=== PATIENT | male | born 1970 | race American Indian/Alaskan Native ===

== ENCOUNTER 2019-04-08 12:26 | Emergency (ER) | payer MEDICARE ==
[2019-04-08 12:50] VITALS: BP 147/102
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
[2019-04-08] MEDS ORDERED: TORADOL IM ONE (14:11)
[2019-04-08] MEDS ORDERED: DELTASONE PO ONE (14:11)
== END 2019-04-08 15:39 | disposition home or self-care (01) ==
LOC: ED 12:26
DX: E11.40 Type 2 diabetes mellitus with diabetic neuropathy, unspecified (principal); I10 Essential (primary) hypertension; F17.200 Nicotine dependence, unspecified, uncomplicated; Z79.4 Long term (current) use of insulin; Z98.890 Other specified postprocedural states; Z79.899 Other long term (current) drug therapy; Z88.8 Allergy status to other drugs, medicaments and biological substances
CPT/HCPCS: 96372; 99282; J1885; J7512

== ENCOUNTER 2019-07-06 09:48 | Emergency (ER) | payer MEDICARE ==
[2019-07-06] MEDS ORDERED: HYDROcodone/ACETAMINOPHEN 5-325 MG TAB PO ONE (11:13)
--- NOTE | 2019-07-06 11:22 | Emergency Department Report ---
ED Lower Extremity HPI - General Chief Complaint: Extremity Injury, Lower Stated Complaint: LEGS/FEET PAIN Time Seen by Provider: 07/06/19 10:22 Source: patient Mode of arrival: Wheelchair Limitations: No Limitations - History of Present Illness Initial Comments: This is a 48-year-old -[place]aced[place] male who presents to the emergency room with bilateral lower extremity pain for one day. Past medical history of paraplegia, diabetes type 2, and hypertension. Patient reports some mild swelling to right lower extremity. States symptoms are worse than diabetic neuropathy pain. States pain is constant throbbing pain to bilateral lower extremity. He denies injury, redness, chills, or fever. MD Complaint: leg injury (bilateral lower extremity) Onset/Timin -: days(s) Injury: Leg: Right, Left Type of Injury: unknown Place: home Severity: severe Severity scale (0 -10): 10 Improves With: nothing Worsens With: nothing Associated Symptoms: denies: swelling, numbness, tingling - Related Data Home Medications Medication Instructions Recorded Confirmed Last Taken amLODIPine 10 mg PO QAM 06/20/16 06/21/16 Unknown Previous Rx's Medication Instructions Recorded Last Taken Type Insulin NPH/Regular [NovoLIN 70/30] 25 unit SUB-Q BIDDIAB #30 units 04/17/16 Unknown Rx Insulin Regular, Human [HumuLIN R] 0 units SUB-Q ACHS #1 units 04/17/16 Unknown Rx Lisinopril [Zestril TAB] 20 mg PO QDAY #30 tablet 04/17/16 Unknown Rx oxyCODONE /ACETAMINOPHEN [Percocet 1 tab PO Q6HR PRN #7 tablet 04/17/16 Unknown Rx 5/325 mg] levoFLOXacin [Levaquin TAB] 750 mg PO DAILY #10 tablet 06/24/[address] (Nf) 50 mg PO BID #20 tablet. 04/08/19 Unknown Rx traMADol [Ultram 50 MG tab] 50 mg PO Q6HR PRN #12 tablet 07/06/19 Unknown Rx Allergies Allergy/AdvReac Type Severity Reaction Status Date / Time lisinopril Allergy Mild Swelling Verified 04/08/19 12:47 ED Review of Systems ROS: Stated complaint: LEGS/FEET PAIN Other details as noted in HPI Constitutional: denies: chills, fever Respiratory: denies: cough, shortness of breath, wheezing Cardiovascular: denies: chest pain, palpitations Gastrointestinal: denies: abdominal pain, nausea, diarrhea Musculoskeletal: arthralgia (BLE pain). denies: back pain, joint swelling Skin: denies: rash, lesions Neurological: denies: headache, weakness, paresthesias Psychiatric: denies: anxiety, depression ED Past Medical Hx - Past Medical History Hx Hypertension: Yes Hx Congestive Heart Failure: No Hx Diabetes: Yes Hx Deep Vein Thrombosis: No Hx Asthma: No Hx COPD: No Additional medical history: spinal injury from [place] 1995 (paraplegic from waist down) - Surgical History Hx Pacemaker: No Hx Internal Defibrillator: No Additional Surgical History: abdomonial surgery after [facility] - Social History Smoking Status: Current Every Day Smoker Substance Use Type: None - Medications Home Medications: Home Medications Medication Instructions Recorded Confirmed Last Taken Type Insulin NPH/Regular [NovoLIN 70/30] 25 unit SUB-Q BIDDIAB #30 units 04/17/16 06/21/16 Unknown Rx Insulin Regular, Human [HumuLIN R] 0 units SUB-Q ACHS #1 units 04/17/16 06/21/16 Unknown Rx Lisinopril [Zestril TAB] 20 mg PO QDAY #30 tablet 04/17/16 06/21/16 Unknown Rx oxyCODONE /ACETAMINOPHEN [Percocet 1 tab PO Q6HR PRN #7 tablet 04/17/16 06/21/16 Unknown Rx 5/325 mg] amLODIPine 10 mg PO QAM 06/20/16 06/21/16 Unknown History levoFLOXacin [Levaquin TAB] 750 mg PO DAILY #10 tablet 06/24/[address] (Nf) 50 mg PO BID #20 tablet.dr 04/08/19 Unknown Rx traMADol [Ultram 50 MG tab] 50 mg PO Q6HR PRN #12 tablet 07/06/19 Unknown Rx ED Physical Exam - General Limitations: No Limitations General appearance: alert, in no apparent distress - Respiratory Respiratory exam: Present: normal lung sounds bilaterally. Absent: respiratory distress - Cardiovascular Cardiovascular Exam: Present: regular rate, normal rhythm. Absent: systolic murmur, diastolic murmur, rubs, gallop - GI/Abdominal GI/Abdominal exam: Present: soft, normal bowel sounds - Expanded Lower Extremity Exam Left Upper Leg exam: Present: normal inspection, full ROM. Absent: tenderness, swelling, abrasion, laceration, ecchymosis, deformity, crepidus, dislocation, erythema Knee exam: Present: normal inspection, full ROM (pain with passive ROM), crepidus, pain w/ pronation/supination, full knee extension. Absent: tenderness, swelling, abrasion, laceration, ecchymosis, deformity, dislocation, erythema, effusion, posterior draw sign, pain/laxity with valgus, pain/laxity with varus Lower Leg exam: Absent: full ROM (pain with passive ROM), tenderness, swelling, abrasion, laceration, ecchymosis, deformity, crepidus, dislocation, erythema, palpable cord, Joshua's sign Ankle exam: Present: normal inspection, full ROM Foot/Toe exam: Present: normal inspection, full ROM Neuro vascular tendon exam: Present: no vascular compromise Gait: Positive: not tested/not observed Right Upper Leg exam: Absent: full ROM (pain with passive ROM), tenderness, swelling, abrasion, laceration, ecchymosis, deformity, crepidus, dislocation, erythema Knee exam: Present: full knee extension. Absent: full ROM, tenderness, swelling, abrasion, laceration, ecchymosis, deformity, crepidus, dislocation, erythema, effusion, pain w/ pronation/supination, posterior draw sign, pain/laxity with valgus, pain/laxity with varus Lower Leg exam: Absent: full ROM (pain with passive ROM), tenderness, swelling, abrasion, laceration, ecchymosis, deformity, crepidus, dislocation, erythema, palpable cord, Joshua's sign Ankle exam: Present: normal inspection, full ROM Foot/Toe exam: Present: normal inspection, full ROM Neuro vascular tendon exam: Present: no vascular compromise Gait: Positive: not tested/not observed (Paraplegic) - Neurological Exam Neurological exam: Present: alert, oriented X3 - Psychiatric Psychiatric exam: Present: normal affect, normal mood - Skin Skin exam: Present: warm, dry, intact, normal color. Absent: rash ED Course Vital Signs 07/06/19 07/06/19 07/06/19 09:55 11:40 13:28 Temperature 99.4 F 99.2 F Pulse Rate 125 H 107 H Respiratory 16 16 18 Rate Blood Pressure 142/94 Blood Pressure 125/82 [Right] O2 Sat by Pulse 92 95 Oximetry ED Lower Extremity MDM - Radiology Data Radiology results: report reviewed DUPLEX DOPPLER LOWER EXTREMITY VEINS, BILATERAL INDICATION: Bilateral lower extremity pain for a few days. Paraplegia and history of diabetes. TECHNIQUE: Duplex doppler imaging was performed through the veins of both lower extremities using venous compression and other maneuvers. COMPARISON: None available. FINDINGS: Right Common femoral vein: Negative. Right Superficial femoral vein: Negative. Right Popliteal vein: Negative. Right Calf veins: Negative. Left Common femoral vein: Negative. Left Superficial femoral vein: Negative. Left Popliteal vein: Negative. Left Calf veins: Negative. Additional findings: There is no evidence of a popliteal cyst or other abnormality. IMPRESSION: No sonographic evidence for DVT in either lower extremity. - Medical Decision Making Patient was examined by me. Patient is nontoxic appearing and stable. Tachycardia which is the same from prior visits. Past medical history of paraplegia, diabetes type 2, and hypertension. Obtained duplex doppler of BLE. No sonographic evidence for DVT in either lower extremity. Given analgesics while in the ER. Patient informed of results. Start tramadol for pain. Follow up with PCP or return to the ER with worsening symptoms. Referral vascular for follow. Patient discharged home in stable condition. Critical care attestation.: If time is entered above; I have spent that time in minutes in the direct care of this critically ill patient, excluding procedure time. ED Disposition Clinical Impression: Bilateral lower extremity pain, Paraplegia Disposition: TO HOME OR SELFCARE Is pt being admited?: No Condition: Stable Instructions: Arthralgia (ED) Additional Instructions: Rest Use ice or heat on affected area for 20 minutes and off for 2 hours. Take pain medication as needed for pain. Follow up with Primary Care Provider in 2-3 days. Prescriptions: traMADol [Ultram 50 MG tab] 50 mg PO Q6HR PRN #12 tablet PRN Reason: Pain Referrals: [facility] [Provider Group] - 3-5 Days [facility] [Provider Group] - 3-5 Days [facility] [Outside] - 3-5 Days [facility] [Provider Group] - 3-5 Days Forms: Work/School Release Form(ED) Time of Disposition: 13:22
--- NOTE | 2019-07-06 12:28 | Vascular Lab Report ---
DUPLEX DOPPLER LOWER EXTREMITY VEINS, BILATERAL INDICATION: Bilateral lower extremity pain for a few days. Paraplegia and history of diabetes. TECHNIQUE: Duplex doppler imaging was performed through the veins of both lower extremities using venous vincent gerry and other maneuvers. COMPARISON: None available. FINDINGS: Right Common femoral vein: Negative. Right Superficial femoral vein: Negative. Right Popliteal vein: Negative. Right Calf veins: Negative. Left Common femoral vein: Negative. Left Superficial femoral vein: Negative. Left Popliteal vein: Negative. Left Calf veins: Negative. Additional findings: There is no evidence of a popliteal cyst or other abnormality. IMPRESSION: No sonographic evidence for DVT in either lower extremity. Signer Name: Ryan Babcock MD Signed: 07/06/2019 12:23 PM Workstation Name: [id number]
[2019-07-06] MEDS ORDERED: KETOROLAC 30 MG/1 ML INJ IM ONE (13:01)
[2019-07-06 13:28] VITALS: BP 125/82
== END 2019-07-06 13:38 | disposition home or self-care (01) ==
LOC: ED 09:48
DX: G82.20 Paraplegia, unspecified (principal); I10 Essential (primary) hypertension; E11.9 Type 2 diabetes mellitus without complications; F17.200 Nicotine dependence, unspecified, uncomplicated; Z98.890 Other specified postprocedural states; Z79.899 Other long term (current) drug therapy; Z88.8 Allergy status to other drugs, medicaments and biological substances
CPT/HCPCS: 93970; 96372; 99283; J1885

== ENCOUNTER 2022-03-01 00:34 | Emergency (ER) | payer MEDICARE ==
[2022-03-01] MEDS ORDERED: dexAMETHasone 4 MG/ML VIAL IV ONE (08:36)
[2022-03-01] MEDS ORDERED: PIPERACIL/TAZOBACTA 4.5/NS 100 4.5 GM/100 ML VIAL IV ONE (08:37)
[2022-03-01] MEDS ORDERED: KETOROLAC 30 MG/1 ML INJ IV ONE (08:37)
[2022-03-01] MEDS ORDERED: MORPHINE 4 MG/1 ML INJ IV ONE (08:38)
[2022-03-01] MEDS ORDERED: ONDANSETRON 4 MG/2 ML INJ IV ONE (08:38)
[2022-03-01] MEDS ORDERED: ALBUTEROL 2.5 MG/3 ML NEBU IH ONE (09:28)
[2022-03-01] MEDS ORDERED: IPRATROPIUM 0.02% NEBU 2.5 ML IH ONE (09:30)
[2022-03-01] MEDS ORDERED: FLUCONAZOLE 200 MG 200 MG/100 ML BAG IV ONE (10:00)
[2022-03-01] MEDS ORDERED: FLUCONAZOLE 400 MG 200 ML IV ONE (10:00)
[2022-03-01 11:32] LABS: Hematocrit 41.5 % (35.5-45.6); Hemoglobin 13.6 gm/dl (11.8-15.2); Mean Corpuscular HGB Conc 33 % (32-34); Mean Corpuscular Volume 86 fl (84-94); Platelet Count 253 K/mm3 (140-440); Red Blood Count 4.85 M/mm3 (3.65-5.03); Red Cell Distribution Width 13.4 % (13.2-15.2)
[2022-03-01 11:58] LABS: BUN/Creatinine Ratio 16; Blood Urea Nitrogen 14 mg/dL (9-20); Calcium 9.8 mg/dL (8.4-10.2); Hemolysis Index 1
[2022-03-01] MEDS ORDERED: SODIUM CHLORIDE 0.9% 1000 ML 1,000 ML IV ONE (12:04)
[2022-03-01] MEDS ORDERED: INSULIN REGULAR, HUMAN 100 UNITS/1 ML IV ONE (12:05)
[2022-03-01] MEDS ORDERED: INSULIN REGULAR, HUMAN 100 UNITS/1 ML ONE (16:13)
--- NOTE | 2022-03-01 16:17 | Cat Scan Report ---
CT orbit/ear/fossa w con INDICATION / CLINICAL INFORMATION: 51 years Male; ear pain and swelling, failed antibiotic therapy. TECHNIQUE: Thin cut axial images obtained to the temporal bones. Sagittal and coronal reconstructions performed by the technologist. Automated exposure control utilized for radiation reduction purposes. COMPARISON: None available. FINDINGS: There are notable inflammatory changes involving visualized superficial soft tissues on the left incl uding the pinna. Additionally, there is irregular shaped fluid collection extending superiorly measur ing approximately 2.0 cm transverse by 3.1 cm AP and greatest dimensions concerning for abscess. The edematous changes result in moderate to narrowing of the left external auditory canal. Additionally, there soft tissue thickening along the bony of portions of the external auditory canal greater on the left measuring approximately 3 mm in thickness. This finding extends a to the scutum with apparent m ild adjacent thickening of the tympanic membrane and adjacent epitympanum and correlation would be ne eded regarding extension at the above infectious or inflammatory process. However, there is no clear evidence of bony erosion or significant opacification of the mastoid air cells on the current exam. The inner ear structures appear appropriately developed. The internal auditory canals and aqueducts d emonstrate appropriate caliber. No significant untoward changes seen involving superficial soft tissu es on the right. ADDITIONAL FINDINGS: There is mild opacification involving inferior left sphenoid sinus. IMPRESSION: There are notable inflammatory changes involving left periauricular soft tissues with extension into the left external auditory canal as detailed above. Additionally, there is a fluid collection extendi ng superiorly indicative of developing abscess and correlation would be needed regarding infectious o r process. There is no clear evidence of significant bony erosive changes or opacification of the mas toid air cells on the current study and the findings appear to be centered more superficially. Signer Name: Nicolas Bishop MD Signed: 03/01/2022 4:12 PM Workstation Name: [id number]
--- NOTE | 2022-03-01 17:28 | Emergency Department Report ---
ED ENT HPI - General Chief complaint: Earache Stated complaint: EAR PAIN Time Seen by Provider: 03/01/22 08:15 Source: patient Mode of arrival: Ambulatory Limitations: No Limitations - History of Present Illness Initial comments: 51 yo black male with pmh of HTN and DM presents to the emergency department for evaluation of left ear pain. He states that he was seen by his pcp who started him on ear drops and Augment for otiitis externa. He states that he has take medications as prescribed but pain and swelling has gotten progressively worse. He denies fever, n/v, abdominal pain, weakness, and fatigue but states that left ear pain has been so bad that he has not been able to sleep for the past 2 days. MD complaint: ear pain -: Gradual, days(s) (6-7) Location: L ear Severity: severe Severity scale (0 -10): 10 Quality: aching Consistency: constant Worsens with: other (palpation) Associated Symptoms: denies: fever, cough, toothache, pain with swallowing, discharge from ear - Related Data Home Medications Medication Instructions Recorded Confirmed Last Taken amLODIPine 10 mg PO QAM 06/20/16 06/21/16 Unknown Previous Rx's Medication Instructions Recorded Last Taken Type Insulin NPH/Regular [NovoLIN 70/30] 25 unit SUB-Q BIDDIAB #30 units 04/17/16 Unknown Rx Insulin Regular, Human [HumuLIN R] 0 units SUB-Q ACHS #1 units 04/17/16 Unknown Rx lisinopriL [Zestril TAB] 20 mg PO QDAY #30 tablet 04/17/16 Unknown Rx oxyCODONE /ACETAMINOPHEN [Percocet 1 tab PO Q6HR PRN #7 tablet 04/17/16 Unknown Rx 5/325 mg] levoFLOXacin [Levaquin TAB] 750 mg PO DAILY #10 tablet 06/24/[address] (Nf) 50 mg PO BID #20 tablet. 04/08/19 Unknown Rx traMADoL [Ultram 50 MG tab] 50 mg PO Q6HR PRN #12 tablet 07/06/19 Unknown Rx Acetaminophen/Codeine [Tylenol 1 tab PO Q6H PRN #20 tab 03/01/22 Unknown Rx /Codeine # 3 tab] Clindamycin [Clindamycin CAP] 300 mg PO Q6H 10 Days #40 cap 03/01/22 Unknown Rx Naproxen [Naprosyn] 500 mg PO BID 7 Days #14 tab 03/01/22 Unknown Rx cephALEXin [Keflex] 500 mg PO BID 10 Days #20 cap 03/01/22 Unknown Rx Allergies Allergy/AdvReac Type Severity Reaction Status Date / Time lisinopril Allergy Mild Swelling Verified 03/01/22 01:29 ED Dental HPI - General Chief complaint: Earache Stated complaint: EAR PAIN Time Seen by Provider: 03/01/22 08:15 Source: patient Mode of arrival: Ambulatory Limitations: No Limitations - Related Data Home Medications Medication Instructions Recorded Confirmed Last Taken amLODIPine 10 mg PO QAM 06/20/16 06/21/16 Unknown Previous Rx's Medication Instructions Recorded Last Taken Type Insulin NPH/Regular [NovoLIN 70/30] 25 unit SUB-Q BIDDIAB #30 units 04/17/16 Unknown Rx Insulin Regular, Human [HumuLIN R] 0 units SUB-Q ACHS #1 units 04/17/16 Unknown Rx lisinopriL [Zestril TAB] 20 mg PO QDAY #30 tablet 04/17/16 Unknown Rx oxyCODONE /ACETAMINOPHEN [Percocet 1 tab PO Q6HR PRN #7 tablet 04/17/16 Unknown Rx 5/325 mg] levoFLOXacin [Levaquin TAB] 750 mg PO DAILY #10 tablet 06/24/[address] (Nf) 50 mg PO BID #20 tablet.dr 04/08/19 Unknown Rx traMADoL [Ultram 50 MG tab] 50 mg PO Q6HR PRN #12 tablet 07/06/19 Unknown Rx Acetaminophen/Codeine [Tylenol 1 tab PO Q6H PRN #20 tab 03/01/22 Unknown Rx /Codeine # 3 tab] Clindamycin [Clindamycin CAP] 300 mg PO Q6H 10 Days #40 cap 03/01/22 Unknown Rx Naproxen [Naprosyn] 500 mg PO BID 7 Days #14 tab 03/01/22 Unknown Rx cephALEXin [Keflex] 500 mg PO BID 10 Days #20 cap 03/01/22 Unknown Rx Allergies Allergy/AdvReac Type Severity Reaction Status Date / Time lisinopril Allergy Mild Swelling Verified 03/01/22 01:29 ED Review of Systems ROS: Stated complaint: EAR PAIN Other details as noted in HPI Comment: All other systems reviewed and negative Constitutional: denies: chills, fever Eyes: denies: eye pain, eye discharge, vision change ENT: ear pain. 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) - Surgical History Past Surgical History?: Yes Hx Pacemaker: No Hx Internal Defibrillator: No Additional Surgical History: abdomonial surgery after [facility] - Social History Smoking Status: Never Smoker Substance Use Type: None - Medications Home Medications: Home Medications Medication Instructions Recorded Confirmed Last Taken Type Insulin NPH/Regular [NovoLIN 70/30] 25 unit SUB-Q BIDDIAB #30 units 04/17/16 06/21/16 Unknown Rx Insulin Regular, Human [HumuLIN R] 0 units SUB-Q ACHS #1 units 04/17/16 06/21/16 Unknown Rx lisinopriL [Zestril TAB] 20 mg PO QDAY #30 tablet 04/17/16 06/21/16 Unknown Rx oxyCODONE /ACETAMINOPHEN [Percocet 1 tab PO Q6HR PRN #7 tablet 04/17/16 06/21/16 Unknown Rx 5/325 mg] amLODIPine 10 mg PO QAM 06/20/16 06/21/16 Unknown History levoFLOXacin [Levaquin TAB] 750 mg PO DAILY #10 tablet 06/24/[address] (Nf) 50 mg PO BID #20 tablet.dr 04/08/19 Unknown Rx traMADoL [Ultram 50 MG tab] 50 mg PO Q6HR PRN #12 tablet 07/06/19 Unknown Rx Acetaminophen/Codeine [Tylenol 1 tab PO Q6H PRN #20 tab 03/01/22 Unknown Rx /Codeine # 3 tab] Clindamycin [Clindamycin CAP] 300 mg PO Q6H 10 Days #40 cap 03/01/22 Unknown Rx Naproxen [Naprosyn] 500 mg PO BID 7 Days #14 tab 03/01/22 Unknown Rx cephALEXin [Keflex] 500 mg PO BID 10 Days #20 cap 03/01/22 Unknown Rx ED Physical Exam - General Limitations: No Limitations General appearance: alert, in no apparent distress - Head Head exam: Present: atraumatic, normocephalic - Expanded Head Exam Expanded 1 - mild erythema with edema and tenderness to any touch to entire left ear that extends to left cheek, under left eye, and post auricular. - Eye Eye exam: Absent: normal appearance (swelling and mild erythema under left eye) - ENT ENT exam: Present: mucous membranes moist. Absent: normal external ear exam - Expanded ENT Exam Expanded Ear exam: Absent: normal external inspection (swelling to entire left ear lobe, with pre and post auricular swelling also. ) TM/Canal exam: Mastoid Tenderness: Left TM Mouth exam: Present: normal external inspection, trismus. Absent: drooling - Neck Neck exam: Present: normal inspection. Absent: tenderness, lymphadenopathy - Respiratory Respiratory exam: Present: normal lung sounds bilaterally. Absent: respiratory distress, wheezes, rales, rhonchi, stridor, chest wall tenderness - Cardiovascular Cardiovascular Exam: Present: tachycardia, normal heart sounds - GI/Abdominal GI/Abdominal exam: Present: soft, normal bowel sounds. Absent: distended, tenderness, guarding, rigid - Extremities Exam Extremities exam: Present: normal inspection, normal capillary refill. Absent: pedal edema, joint swelling, calf tenderness - Back Exam Back exam: Present: normal inspection. Absent: tenderness, CVA tenderness (R), CVA tenderness (L) - Neurological Exam Neurological exam: Present: alert, oriented X3, CN II-XII intact - Psychiatric Psychiatric exam: Present: normal affect, normal mood - Skin Skin exam: Present: warm, dry, intact, normal color ED Course Vital Signs 03/01/22 03/01/22 03/01/22 01:22 10:50 17:42 Temperature 99.0 F 98.4 F Pulse Rate 105 H 76 Pulse Rate [ 84 Anterior] Respiratory 18 16 Rate Respiratory 18 Rate [Anterior] Blood Pressure 175/100 156/98 [Left] O2 Sat by Pulse 99 99 Oximetry 03/01/22 18:05 Temperature 98.6 F Pulse Rate 90 Pulse Rate [ Anterior] Respiratory 18 Rate Respiratory Rate [Anterior] Blood Pressure 154/86 [Left] O2 Sat by Pulse 99 Oximetry - Reevaluation(s) Reevaluation #1: 03/01/22 17:22 Pain mostly resolved and patient states that he feels much better. ED Medical Decision Making - Lab Data Result diagrams: 03/01/22 11:13 03/01/22 11:13 - Radiology Data Radiology results: report reviewed, image reviewed CT orbit, ear and fossa with contrast: FINDINGS: There are notable inflammatory changes involving visualized superficial soft tissues on the left including the pinna. Additionally, there is irregular shaped fluid collection extending superiorly measuring approximately 2.0 cm transverse by 3.1 cm AP and greatest dimensions concerning for abscess. The edematous changes result in moderate to narrowing of the left external auditory canal. Additionally, there soft tissue thickening along the bony of portions of the external auditory canal greater on the left measuring approximately 3 mm in thickness. This finding extends a to the scutum with apparent mild adjacent thickening of the tympanic membrane and adjacent epitympanum and correlation would be needed regarding extension at the above infectious or inflammatory process. However, there is no clear evidence of bony erosion or significant opacification of the mastoid air cells on the current exam. The inner ear structures appear appropriately developed. The internal auditory canals and aqueducts demonstrate appropriate caliber. No significant untoward changes seen involving superficial soft tissues on the right. ADDITIONAL FINDINGS: There is mild opacification involving inferior left sphenoid sinus. IMPRESSION: There are notable inflammatory changes involving left periauricular soft tissues with extension into the left external auditory canal as detailed above. Additionally, there is a fluid collection extending superiorly indicative of developing abscess and correlation would be needed regarding infectious or process. There is no clear evidence of significant bony erosive changes or opacification of the mastoid air cells on the current study and the findings appear to be centered more superficially. - Medical Decision Making 51 yo black male with pmh of HTN and DM presents to the emergency department for evaluation of left ear pain. He states that he was seen by his pcp who started him on ear drops and Augment for otiitis externa. He states that he has take medications as prescribed but pain and swelling has gotten progressively worse. He denies fever, n/v, abdominal pain, weakness, and fatigue but states that left ear pain has been so bad that he has not been able to sleep for the past 2 days. Physical exam consistent with left ear and facial cellulitis. Noted to have elevated WBC's and serum BG. Patient states that he has taken several days of Augmentin without worsening. Patient treated in ED with clindamycin 600 mg IV, Zosyn 4.45mg IV and because patient is diabetic diflucan 400mg IV. Her pain was treated with morphine 4mg IV, Toradol 15mg IV, and decadron 8mg IV. Patient had elevated BG but was noted to have normal anion gap adn venous PH. He was treated with NS 1 liter IV with 10 units of regular insulin IV. CT scan shows facial cellullitis only without involvement of bone and other structures. Patient will be discharged home on clindamycin, keflex, naproxen, and tylenol #3. He stated that he stopped his oral BG medications several weeks ago, and he was counseled on importance of maintaining normal blood glucose while abscess is healing. He was noted to have improvement in facial swelling after medications. Patient was given strict return instructions to include returning to ED immediately if he develops fever or worsening symptoms. He verbalizes understanding of and agreement with plan of care. Critical care attestation.: If time is entered above; I have spent that time in minutes in the direct care of this critically ill patient, excluding procedure time. ED Disposition Clinical Impression: Cellulitis of earlobe Qualifiers: Laterality: left Qualified Code(s): H60.12 - Cellulitis of left external ear Disposition: 01 HOME / SELF CARE / HOMELESS Is pt being admited?: No Does the pt Need Aspirin: No Condition: Stable Instructions: Cellulitis, Adult, [id number] Additional Instructions: Take medication as prescribed. If no improvement in 3 to 4 days, follow-up with your primary care provider for further evaluation or management or return to the emergency department. Prescriptions: Clindamycin [Clindamycin CAP] 300 mg PO Q6H 10 Days #40 cap cephALEXin [Keflex] 500 mg PO BID 10 Days #20 cap Naproxen [Naprosyn] 500 mg PO BID 7 Days #14 tab Acetaminophen/Codeine [Tylenol /Codeine # 3 tab] 1 tab PO Q6H PRN #20 tab PRN Reason: Pain , Severe (7-10) Referrals: EVE LEWIS MD [Staff Physician] - 3-5 Days CHRIS RUBALCAVA MD [Staff Physician] - 3-5 Days VICKEY OLIVER MD [Staff Physician] - 3-5 Days Time of Disposition: 17:30
[2022-03-01 18:17] VITALS: BP 154/86
== END 2022-03-01 18:18 | disposition home or self-care (01) ==
LOC: ED 00:34
DX: H60.12 Cellulitis of left external ear (principal); R06.02 Shortness of breath; I10 Essential (primary) hypertension; E11.9 Type 2 diabetes mellitus without complications; Z98.890 Other specified postprocedural states; Z88.8 Allergy status to other drugs, medicaments and biological substances
CPT/HCPCS: 36415; 70481; 80048; 82805; 82962; 85027; 87040; 94640; 96365; 96366; 96367; 96375; 99284; J1100; J1450; J1885; J2270; J2405; J7502; Q9967; 94644; J1815